=== PATIENT | male | born 1955 | race Caucasian/White ===

== ENCOUNTER 2018-02-10 07:21 | Day surgery (SDC) | payer OTHER ==
[2018-02-10] MEDS ORDERED: Ringers Lactate 1,000 ML IV ONE (07:28)
[2018-02-10] MEDS ORDERED: NA CIT/CITRIC AC 30 ML ORAL UDC ONE (07:52)
[2018-02-10] MEDS ORDERED: NA CIT/CITRIC AC 30 ML ORAL UDC PO ONE (08:05)
[2018-02-10] MEDS ORDERED: PROPOFOL 200 MG/20 ML VIAL IV ONE (08:19)
--- NOTE | 2018-02-10 08:49 | ENDO RPT ---
[address], [address] EGD PROCEDURE REPORT EXAM DATE: 02/10/2018 PATIENT NAME: Manfred Gordon V. MR#: [id number] BIRTHDATE: 1955 ATTENDING: Marcel Murray DR STATUS: outpatient DISK SHARPENER: Ruth Warner and Klaudia Vieira RN INDICATIONS: The patient is a 62 yr old Male here for an EGD due to GERD and S/P Fundoplication PROCEDURE PERFORMED: EGD with biopsy for H. pylori MEDICATIONS: Per Anesthesia. TOPICAL ANESTHETIC: none CONSENT: The patient understands the risks and benefits of the procedure and understands that these risks include, but are not limited to: sedation, allergic reaction, infection, perforation and/or bleeding. Alternative means of evaluation and treatment include, among others: physical exam, x-rays, and/or surgical intervention. The patient elects to proceed with this endoscopic procedure. DESCRIPTION OF PROCEDURE: During intra-op preparation period all mechanical medical equipment was checked for proper function. Hand hygiene and appropriate measures for infection prevention was taken. Procedure, possible complications, and alternatives including but not limited to the possibility of bleeding, perforation, tear, infection, sepsis, need for surgery, need for blood transfusion, and anesthesia related complications were explained to the patient. After the risks, benefits and alternatives of the procedure were thoroughly explained, Informed consent was verified, confirmed and timeout was successfully executed by the treatment team. The patient was placed in the left lateral position. The patient was anesthetized with topical anesthesia. Through the anesthetized oropharyngeal area, the scope was passed without any difficulty. The [id number] ([id number]) endoscope was introduced through the mouth and advanced to the second portion of the duodenum. Retroflexed views revealed a moderate sized hiatal hernia. The gastroscope was then slowly withdrawn and removed. Mild gastritis was found in the body and the antrum of the stomach. A biopsy for H. pylori was taken. Multiple biopsies were obtained and sent to pathology. Multiple erosions were found in the lower esophagus. Located 38 cm from the point of entry. Multiple biopsies were obtained and sent to pathology. A biopsy for H. pylori was taken. A moderate sized hiatal hernia was found A biopsy for H. pylori was taken. ADVERSE EVENTS: There were no complications. IMPRESSIONS: Mild gastritis was found in the body and the antrum of the stomach RECOMMENDATIONS: 1. anti-reflux regimen 2. await biopsy results 3. acid suppression therapy 4. follow-up: office 2 week(s) 5. avoid NSAIDS REPEAT EXAM: Marcel Murray DR eSigned: Marcel Murray DR 02/10/2018 8:48 AM cc: CPT CODES: ICD9 CODES: PATIENT NAME: Manfred Gordon V. MR#: [id number]
== END 2018-02-10 09:27 | disposition home or self-care (01) ==
LOC: ENDO 07:21
PROVIDERS: ATTEND Surgery
PROC: 0DB68ZX Excision of Stomach, Via Natural or Artificial Opening Endoscopic, Diagnostic (ICD-10-PCS; 2018-02-10)
PROC: 0DB38ZX Excision of Lower Esophagus, Via Natural or Artificial Opening Endoscopic, Diagnostic (ICD-10-PCS; principal; 2018-02-10 08:30)
DX: K29.50 Unspecified chronic gastritis without bleeding (principal); K22.10 Ulcer of esophagus without bleeding; K44.9 Diaphragmatic hernia without obstruction or gangrene
CPT/HCPCS: 88305; 88312

== ENCOUNTER 2019-07-21 03:52 | Emergency (ER) | payer OTHER, SELFPAY ==
[2019-07-21] MEDS ORDERED: LORazepam 2 MG/ML VIAL ONE (04:10)
[2019-07-21 05:23] LABS: Absolute Lymphocytes (CBC) 2.2 K/uL (0.7-4.9); Basophils % 0.5 % (0-1.3); Hematocrit 44.2 % (39.6-49.0); Lymphocytes % 26.8 % (15.3-44.8); MPV 9.6 fL (7.6-11.3); Protime INR 1.14; RBC Red Blood Cell Count 4.74 M/uL (4.33-5.43)
[2019-07-21 05:41] LABS: Potassium 3.2 mmol/L (3.5-5.1)
[2019-07-21] MEDS ORDERED: PIPER/TAZO/NS 2.25gm 0 GM/0 ML BAG ONE (05:45)
[2019-07-21 05:55] LABS: Barbiturates NEGATIVE (NEGATIVE); Benzodiazepines NEGATIVE (NEGATIVE); Cocaine NEGATIVE (NEGATIVE); METHAMPHETAM NEGATIVE (NEGATIVE); Methadone NEGATIVE (NEGATIVE); Opiates NEGATIVE (NEGATIVE); Phencyclidine NEGATIVE (NEGATIVE); THC Cannibis NEGATIVE (NEGATIVE)
--- NOTE | 2019-07-21 06:16 | ER ---
Nurse's Notes [facility] Name: Manfred Gordon Age: 63 yrs Sex: Male : 1955 Arrival Date: 07/21/2019 Time: 03:57 Bed 13 Private MD: Diagnosis: Hyperventilation;Abnormal weight loss;Major depressive disorder, single episode Presentation: 07/21 04:04 Presenting complaint: EMS states: Patient was at work talking on the phone with his tl1 and became very anxious and started hyperventilating. Pt denies any history. Transition of care: patient was not received from another setting of care. Onset of symptoms was July 21, 2019. Risk Assessment: Do you want to hurt yourself or someone else? Patient reports no desire to harm self or others. Initial Sepsis Screen: Does the patient meet any 2 criteria? RR > 20 per min. HR > 90 bpm. Does the patient have a suspected source of infection? No. Patient's initial sepsis screen is negative. Care prior to arrival: None. 04:04 Method Of Arrival: EMS: [facility] tl1 04:04 Acuity: LILLIE 2 tl1 Historical: - Allergies: 04:07 No Known Allergies; tl1 - Home Meds: 04:07 None [Active]; tl1 - PMHx: 04:07 None; tl1 - PSHx: 04:07 None; tl1 - Immunization history:: Adult Immunizations unknown. - Social history:: Smoking status: Patient/guardian denies using tobacco, Patient/guardian denies using alcohol, street drugs. - Ebola Screening: : Patient negative for fever greater than or equal to 101.5 degrees Fahrenheit, and additional compatible Ebola Virus Disease symptoms Patient denies exposure to infectious person Patient denies travel to an Ebola-affected area in the 21 days before illness onset. Screenin:41 Abuse screen: Denies threats or abuse. Nutritional screening: No deficits noted. jb4 Tuberculosis screening: No symptoms or risk factors identified. The patient is alert, able to follow commands. The patient does not exhibit slurred or garbled speech The patient is not exhibiting difficulty speaking. The patient does not exhibit difficulty understanding words. The patient is able to swallow own secretions with no drooling or need for suction. Patient tolerated one teaspoon of water. No drooling, immediate coughing, gurgling, or clearing of the throat was noted. The patient tolerated 90mL of water. No drooling, immediate coughing, gurgling, or clearing of the throat was noted. The patient passed the bedside swallow screening. Oral medications may be given as ordered. Contact Physician for further diet orders. Fall Risk None identified. Assessment: 04:00 General: Appears distressed, uncomfortable, Behavior is cooperative, anxious. Pain: jb4 Denies pain. Neuro: Level of Consciousness is awake, alert, obeys commands, Oriented to person, place, situation. Cardiovascular: Patient's skin is warm and dry. Respiratory: Airway is patent Respiratory effort is even, unlabored, Respiratory pattern is regular, symmetrical. GI: No deficits noted. No signs and/or symptoms were reported involving the gastrointestinal system. : No deficits noted. No signs and/or symptoms were reported regarding the genitourinary system. EENT: No deficits noted. No signs and/or symptoms were reported regarding the EENT system. Derm: Skin is intact, Skin is pink, warm \T\ dry. Musculoskeletal: Circulation, motion, and sensation intact. 04:48 Reassessment: Patient and/or family updated on plan of care and expected duration. Pain jb4 level reassessed. Patient is alert, oriented x 3, equal unlabored respirations, skin warm/dry/pink. Patient states feeling better. General: Behavior is flat. 05:49 Reassessment: Patient appears in no apparent distress at this time. Patient and/or jb4 family updated on plan of care and expected duration. Pain level reassessed. Patient is alert, oriented x 3, equal unlabored respirations, skin warm/dry/pink. 06:20 Reassessment: Patient appears in no apparent distress at this time. Patient and/or jb4 family updated on plan of care and expected duration. Pain level reassessed. Patient is alert, oriented x 3, equal unlabored respirations, skin warm/dry/pink. PT verbalized understanding of d/c and follow up instructions. Ambulated out of ED with steady gait. Patient states symptoms have improved. Vital Signs: 04:08 BP 164 / 81; Pulse 104; Resp 42; Temp 97.6; Pulse Ox 100% ; Weight 95.25 kg; Height 6 tl1 ft. 0 in. (182.88 cm); Pain 0/10; 04:45 BP 158 / 105; Pulse 103; Resp 24; Pulse Ox 100% on R/A; jb4 05:15 BP 125 / 70; Pulse 106; Pulse Ox 100% ; sh8 05:30 BP 139 / 92; Pulse 106; Resp 22; Pulse Ox 99% on R/A; sh8 06:15 BP 112 / 77; Pulse 93; Resp 16; Pulse Ox 100% on R/A; jb4 04:08 Body Mass Index 28.48 (95.25 kg, 182.88 cm) tl1 NIH Stroke Scale Scores: 19:40 NIHSS Score: 1 ED Course: 03:57 Patient arrived in ED. ds1 04:00 Eamon Ann MD is Attending Physician. gs 04:07 Triage completed. tl1 04:08 Arm band placed on right wrist. Arm band placed on left wrist. EKG completed in triage. tl1 Results shown to MD. EKG completed in triage. Results shown to MD. 04:08 Patient has correct armband on for positive identification. Placed in gown. Bed in low jb4 position. Call light in reach. Side rails up X 1. Pulse ox on. NIBP on. 04:10 Initial lab(s) drawn, by me, sent to lab. Inserted saline lock: 20 gauge in right jb4 antecubital area, using aseptic technique. Blood collected. 04:16 Mike Christian, RN is Primary Nurse. jb4 04:33 CT completed. Pt tolerated procedure poorly. Patient moved to CT via stretcher. Patient eh moved back from CT. 04:37 Head Brain Wo Cont In Process Unspecified. EDMS 05:00 Stroke CXR 1 View In Process Unspecified. EDMS 06:23 No provider procedures requiring assistance completed. jb4 06:23 IV discontinued, intact, bleeding controlled, No redness/swelling at site. Pressure jb4 dressing applied. Administered Medications: 04:17 Drug: Ativan 0.5 mg Route: IVP; Site: right antecubital; jb4 05:30 Follow up: Response: No adverse reaction; Marked relief of symptoms jb4 04:21 Drug: Ativan 0.5 mg Route: IVP; Infused Over: 2 mins; Site: right antecubital; tl1 05:29 Follow up: Response: No adverse reaction; Marked relief of symptoms jb4 05:47 CANCELLED (Duplicate Order): Zosyn 2.25 grams IVPB once over 60 mins; (mix in NS 100 mL) Outcome: 06:15 Discharge ordered by . 06:23 Discharged to home ambulatory, with family. jb4 06:23 Condition: stable 06:23 Discharge instructions given to patient, family, Instructed on discharge instructions, follow up and referral plans. Demonstrated understanding of instructions, follow-up care. 06:24 Patient left the ED. jb4 NIH Stroke Scale - NIH Stroke Score Date: 07/21/2019 Time: 19:40 Total Score = 1 1a. Level of Consciousness (LOC) - 0(Alert) 1b. Level of Consciousness (LOC) (Year \T\ Age) - 1(One) 1c. LOC Commands (Open \T\ Closes Eyes/Sewer Digger) - 0(Both) 2. Best Gaze (Lateral Gaze Paresis) - 0(Normal) 3. Visual Field Loss - 0(No visual loss) 4. Facial Palsy - 0(Normal) 5a. Left Arm: Motor (10-second hold) - 0(No drift) 5b. Right Arm: Motor (10-second hold) - 0(No drift) 6a. Left Leg: Motor (5-second hold - always test supine) - 0(No drift) 6b. Right Leg: Motor (5-second hold - always test supine) - 0(No drift) 7. Limb Ataxia (finger/nose \T\ heel/mohan - test with eyes open) - 0(Absent) 8. Sensory Loss (pinprick arms/legs/face) - 0(Normal) 9. Best Language: Aphasia (description/naming/reading) - 0(No aphasia) 10. Dysarthria (speech clarity - read or repeat words) - 0(Normal) 11. Extinction and Inattention (visual/tactile/auditory/spatial/personal) - 0(No abnormality) Initials: Signatures: Dispatcher [employer] Stu Pinto Demi ds1 Ashley Talbert, RN RN tl1 Mike Christian RN RN jb4 Eamon Ann MD MD gs Heathcock, Shelbi 8 Corrections: (The following items were deleted from the chart) 06:21 04:48 Reassessment: Patient and/or family updated on plan of care and expected jb4 duration. Pain level reassessed. Patient is alert, oriented x 3, equal unlabored respirations, skin warm/dry/pink. Patient is alert/active/playful, equal unlabored respirations, skin warm/dry/pink. Patient states feeling better. jb4 06:21 05:49 Reassessment: Patient appears in no apparent distress at this time. jb4 Patient and/or family updated on plan of care and expected duration. Pain level reassessed. Patient is alert, oriented x 3, equal unlabored respirations, skin warm/dry/pink. jb4
--- NOTE | 2019-07-21 06:16 | EDPHYS ---
Physician Documentation [facility] Name: Manfred Gordon Age: 63 yrs Sex: Male : 1955 Arrival Date: 07/21/2019 Time: 03:57 Bed 13 Private MD: ED Physician Eamon Ann HPI: 07/21 19:40 This 63 yrs old Male presents to ER via EMS with complaints of Dizziness, gs Anxiety. 19:40 Onset: The symptoms/episode began/occurred suddenly, this morning, at work was arguing gs with on phone, became nervous hyperventilating. Associated signs and symptoms: Pertinent positives: confusion, Pertinent negatives: abdominal pain, chest pain. Severity of symptoms: At their worst the symptoms were severe in the emergency department the symptoms are unchanged. The patient has experienced a previous episode. The patient has not recently seen a physician. says very depressed last several months, sleep disturbance 35 lb wt loss. Historical: - Allergies: 04:07 No Known Allergies; tl1 - Home Meds: 04:07 None [Active]; tl1 - PMHx: 04:07 None; tl1 - PSHx: 04:07 None; tl1 - Immunization history:: Adult Immunizations unknown. - Social history:: Smoking status: Patient/guardian denies using tobacco, Patient/guardian denies using alcohol, street drugs. - Ebola Screening: : Patient negative for fever greater than or equal to 101.5 degrees Fahrenheit, and additional compatible Ebola Virus Disease symptoms Patient denies exposure to infectious person Patient denies travel to an Ebola-affected area in the 21 days before illness onset. ROS: 19:40 All other systems are negative. gs Exam: 19:40 Head/Face: Normocephalic, atraumatic. Eyes: Pupils equal round and reactive to light, gs extra-ocular motions intact. Lids and lashes normal. Conjunctiva and sclera are non-icteric and not injected. Cornea within normal limits. Periorbital areas with no swelling, redness, or edema. ENT: Nares patent. No nasal discharge, no septal abnormalities noted. Tympanic membranes are normal and external auditory canals are clear. Oropharynx with no redness, swelling, or masses, exudates, or evidence of obstruction, uvula midline. Mucous membranes moist. Neck: Trachea midline, no thyromegaly or masses palpated, and no cervical lymphadenopathy. Supple, full range of motion without nuchal rigidity, or vertebral point tenderness. No Meningismus. Chest/axilla: Normal chest wall appearance and motion. Nontender with no deformity. No lesions are appreciated. 19:40 Abdomen/GI: Soft, non-tender, with normal bowel sounds. No distension or tympany. No guarding or rebound. No evidence of tenderness throughout. Back: No spinal tenderness. No costovertebral tenderness. Full range of motion. Skin: Warm, dry with normal turgor. Normal color with no rashes, no lesions, and no evidence of cellulitis. MS/ Extremity: Pulses equal, no cyanosis. Neurovascular intact. Full, normal range of motion. Neuro: Awake and alert, GCS 15, oriented to person, place, time, and situation. Cranial nerves II-XII grossly intact. Motor strength 5/5 in all extremities. Sensory grossly intact. Cerebellar exam normal. Normal gait. 19:40 Constitutional: The patient appears alert, awake, anxious. 19:40 Cardiovascular: Rate: tachycardic, Rhythm: regular, Pulses: no pulse deficits are appreciated. 19:40 ECG was reviewed by the Attending Physician. 19:40 Respiratory: mild respiratory distress is noted, Respirations: tachypnea, that is moderate, Breath sounds: are clear throughout. 19:40 Psych: Behavior/mood is anxious, Affect is flat, Oriented to person, place, Not oriented to time, Patient has no thoughts/intents to harm self or others. Delusions/hallucinations are not present. Vital Signs: 04:08 BP 164 / 81; Pulse 104; Resp 42; Temp 97.6; Pulse Ox 100% ; Weight 95.25 kg; Height 6 tl1 ft. 0 in. (182.88 cm); Pain 0/10; 04:45 BP 158 / 105; Pulse 103; Resp 24; Pulse Ox 100% on R/A; jb4 05:15 BP 125 / 70; Pulse 106; Pulse Ox 100% ; sh8 05:30 BP 139 / 92; Pulse 106; Resp 22; Pulse Ox 99% on R/A; sh8 06:15 BP 112 / 77; Pulse 93; Resp 16; Pulse Ox 100% on R/A; jb4 04:08 Body Mass Index 28.48 (95.25 kg, 182.88 cm) tl1 NIH Stroke Scale Scores: 19:40 NIHSS Score: 1 gs MDM: 04:00 Patient medically screened. 19:40 Differential diagnosis: CVA, TIA, hyperventilation, generalized anxiety. Data reviewed: vital signs, nurses notes, lab test result(s), EKG, radiologic studies. Counseling: I had a detailed discussion with the patient and/or guardian regarding: the historical points, exam findings, and any diagnostic results supporting the discharge/admit diagnosis. Response to treatment: the patient's symptoms have resolved after treatment, the patient's condition has returned to base line, wants to go home exam normal recommended stress and depression counseling seeing PCP also. 07/21 04:02 Order name: UDS; Complete Time: 06:14 07/21 04:02 Order name: Basic Metabolic Panel; Complete Time: 05:48 07/21 04:02 Order name: CBC with Diff; Complete Time: 05:37 07/21 04:02 Order name: Protime (+inr); Complete Time: 05:37 07/21 04:02 Order name: ETOH Level; Complete Time: 06:14 07/21 04:29 Order name: ABG 07/21 04:02 Order name: Stroke CXR 1 View 07/21 04:02 Order name: EKG; Complete Time: 04:02 07/21 04:25 Order name: Head Brain Wo Cont EDSD 07/21 04:48 Order name: Glucose, Ancillary Testing; Complete Time: 05:10 [facility] 07/21 04:02 Order name: Accucheck; Complete Time: 04:41 07/21 04:02 Order name: Cardiac monitoring; Complete Time: 04:17 07/21 04:02 Order name: EKG - Nurse/Tech; Complete Time: 04:17 07/21 04:02 Order name: IV Saline Lock; Complete Time: 04:17 07/21 04:02 Order name: Labs collected and sent; Complete Time: 04:17 07/21 04:02 Order name: NPO; Complete Time: 04:17 07/21 04:02 Order name: O2 Per Protocol; Complete Time: 04:17 07/21 04:02 Order name: O2 Sat Monitoring; Complete Time: 04:17 07/21 04:02 Order name: Stroke Swallow Screen; Complete Time: 04:41 gs EC:40 Rate is 98 beats/min. Rhythm is regular. TX interval is normal. QRS interval is normal. gs QT interval is prolonged. T waves are Flattened. Clinical impression: NSR w/ Non-specific ST/T Changes and Abnormal EKG without significant change. Interpreted by me. Administered Medications: 04:17 Drug: Ativan 0.5 mg Route: IVP; Site: right antecubital; jb4 05:30 Follow up: Response: No adverse reaction; Marked relief of symptoms jb4 04:21 Drug: Ativan 0.5 mg Route: IVP; Infused Over: 2 mins; Site: right antecubital; tl1 05:29 Follow up: Response: No adverse reaction; Marked relief of symptoms jb4 05:47 CANCELLED (Duplicate Order): Zosyn 2.25 grams IVPB once over 60 mins; (mix in NS 100 mL)gs Disposition: 07/21/19 06:15 Discharged to Home. Impression: Hyperventilation, Abnormal weight loss, Major depressive disorder, single episode. - Condition is Stable. - Discharge Instructions: Hyperventilation, Managing Your Hypertension, Major Depressive Disorder. - Medication Reconciliation Form, Thank You Letter, Antibiotic Education, Prescription Opioid Use form. - Follow up: Private Physician; When: 2 - 3 days; Reason: Re-evaluation by your physician. NIH Stroke Scale - NIH Stroke Score Date: 07/21/2019 Time: 19:40 Total Score = 1 1a. Level of Consciousness (LOC) - 0(Alert) 1b. Level of Consciousness (LOC) (Year \T\ Age) - 1(One) 1c. LOC Commands (Open \T\ Closes Eyes/Hotel Office Manager) - 0(Both) 2. Best Gaze (Lateral Gaze Paresis) - 0(Normal) 3. Visual Field Loss - 0(No visual loss) 4. Facial Palsy - 0(Normal) 5a. Left Arm: Motor (10-second hold) - 0(No drift) 5b. Right Arm: Motor (10-second hold) - 0(No drift) 6a. Left Leg: Motor (5-second hold - always test supine) - 0(No drift) 6b. Right Leg: Motor (5-second hold - always test supine) - 0(No drift) 7. Limb Ataxia (finger/nose \T\ heel/mohan - test with eyes open) - 0(Absent) 8. Sensory Loss (pinprick arms/legs/face) - 0(Normal) 9. Best Language: Aphasia (description/naming/reading) - 0(No aphasia) 10. Dysarthria (speech clarity - read or repeat words) - 0(Normal) 11. Extinction and Inattention (visual/tactile/auditory/spatial/personal) - 0(No abnormality) Initials: Signatures: Dispatcher [employer] EDSD Ashley Talbert, RN RN tl1 Mike Christian RN RN jb4 Eamon Ann MD MD gs Corrections: (The following items were deleted from the chart) 04:25 04:02 CT-STROKE BRAIN W/O CONTRAST+CT.RAD.BRZ ordered. EDSD EDMS 05:47 05:40 Zosyn 2.25 grams IVPB once over 60 mins; (mix in NS 100 mL) ordered. [facility] 06:24 06:15 07/21/2019 06:15 Discharged to Home. Impression: Hyperventilation; jb4 Abnormal weight loss; Major depressive disorder, single episode. Condition is Stable. Forms are Medication Reconciliation Form, Thank You Letter, Antibiotic Education, Prescription Opioid Use. Follow up: Private Physician; When: 2 - 3 days; Reason: Re-evaluation by your physician.
[2019-07-21 06:30] VITALS: TEMP 97.6; O2SAT 100
[2019-07-21 07:12] VITALS: BP 112/77
--- NOTE | 2019-07-21 08:28 | EKG ---
Test Date: 2019-07-21 Test Time: 04:00:02 Laceworker: SWATI MEASUREMENT RESULTS: Intervals: Rate: 98 CO: 126 QRSD: 96 QT: 390 QTc: 497 [place]: P: 76 CO: 126 QRS: 85 T: 63 INTERPRETIVE STATEMENTS: Normal sinus rhythm Nonspecific ST abnormality Prolonged QT Abnormal ECG No previous ECG available for comparison Electronically Signed On 07-21-19 08:27:24 CDT by Doyle Cope
--- NOTE | 2019-07-21 10:26 | RAD REPORT ---
EXAM DESCRIPTION: RAD - Chest Single View - 07/21/2019 4:59 am CLINICAL HISTORY: Dyspnea COMPARISON: None. TECHNIQUE: AP portable chest image was obtained 0429 hours . FINDINGS: No focal mass or consolidation. No failure or volume overload. Interstitial markings are m ildly prominent. Right hilum is unremarkable. Slight fullness of the left hilum is present with no adequate comparison available. This is almost certainly normal summation due to portable imaging and slight rotation. Fo llow-up two view imaging may be helpful. Heart and vasculature are normal. No measurable pleural effusion and no pneumothorax. No acute bony abnormality seen. No acute aortic findings suspected. IMPRESSION: 1. No acute cardiopulmonary finding identified. 2. The patient has fullness of the left hilum on this baseline examination almost certainly a summati on of normal vasculature. If the patient has risk factors, follow-up two-view chest imaging is recomm ended the patient has no outside imaging known.
--- NOTE | 2019-07-21 11:27 | RAD REPORT ---
EXAM DESCRIPTION: CT - Head Brain Wo Cont - 07/21/2019 6:25 am CLINICAL HISTORY: The patient is 63 years old and is Male; CONFUSED TECHNIQUE: Axial computed tomography images of the head/brain without intravenous contrast. Sagitt al and coronal reformatted images were created and reviewed. This CT exam was performed using one o r more of the following dose reduction techniques: automated exposure control, adjustment of the mA and/or kV according to patient size, and/or use of iterative reconstruction technique. COMPARISON: No relevant prior studies available. FINDINGS: BRAIN: Unremarkable. The daven[place]-white matter differentiation is preserved . No hemorrhag e. No significant white matter disease. No edema. No extra-axial fluid collections. VENTRICLES: Unremarkable. No ventriculomegaly. BONES/JOINTS: No acute fracture. SOFT TISSUES: Unremarkable. SINUSES: Unremarkable as visualized. No acute sinusitis. MASTOID AIR CELLS: Unremarkable as visualized. No mastoid effusion. ORBITS: Unremarkable as visualized. IMPRESSION: No acute intracranial findings. Electronically signed by: Liana Fowler MD 07/21/2019 6:08 AM CDT Due to temporary technical issues with the PACS/Fluency reporting system, reports are being signed by the in house radiologist as a courtesy to ensure prompt reporting. The interpreting radiologist is f ully responsible for the content of the report.
== END 2019-07-21 06:24 | disposition home or self-care (01) ==
LOC: ER 03:52
DX: R06.4 Hyperventilation (principal); R63.4 Abnormal weight loss; F32.9 Major depressive disorder, single episode, unspecified
CPT/HCPCS: 36415; 70450; 71045; 80048; 80307; 80320; 82947; 85025; 85610; 93005; 96374; 99284; J2543

== ENCOUNTER 2022-06-05 06:30 | Day surgery (SDC) | payer OTHER ==
--- NOTE | 2022-05-30 09:20 | RAD REPORT ---
EXAM DESCRIPTION: Annabelle Ruiz (2 Views)05/30/2022 9:09 am CLINICAL HISTORY: Preop for foot surgery COMPARISON: 2019 FINDINGS: Lungs are mildly hyperaerated. The lungs appear clear of acute infiltrate. The heart is normal size Gastric band in place IMPRESSION: No acute abnormalities displayed
[2022-05-30 09:31] LABS: SARS-CoV-2 Antigen Rapid Res Negative (Negative)
[2022-05-30 09:36] LABS: Potassium 4.4 mmol/L (3.5-5.1)
[2022-05-30 09:49] LABS: Absolute Lymphocytes (CBC) 2.3 K/uL (0.7-4.9); Hematocrit 42.6 % (39.6-49.0); Lymphocytes % 56.7 % (15.3-44.8); MCV 93.6 fL (80-100); MPV 8.1 fL (7.6-11.3); RBC Red Blood Cell Count 4.55 M/uL (4.33-5.43)
--- NOTE | 2022-05-30 13:57 | EKG ---
Test Date: 2022-05-30 Test Time: 08:37:36 Hand Bootmaker: MICHELE MEASUREMENT RESULTS: Intervals: Rate: 79 OR: 154 QRSD: 86 QT: 382 QTc: 438 [place]: P: 73 OR: 154 QRS: 65 T: 50 INTERPRETIVE STATEMENTS: Normal sinus rhythm Low voltage QRS Borderline ECG Compared to ECG 07/21/2019 04:00:02 Low QRS voltage now present ST (T wave) deviation no longer present Prolonged QT interval no longer present Electronically Signed On 05-30-22 13:57:26 CDT by Neal Ludwig
--- NOTE | 2022-06-04 19:22 | PREOPHP ---
Date of Admission: 06/05/2022 History Of Present Illness: This patient presented to my office with a chief complaint of a painful 4th and 5th toe present on the right foot. Patient has had pain for years, relieved by rest, worse w ith activity, sore and throbbing in nature, moderate in severity. The patient has tried conservative care, paddings, changing shoe gear, all to no avail. Past Medical History: Includes depression. Surgical History: Includes wrist surgery, bilateral thorax outlet surgery and back fusions at L4-L5 and C6-C7. Current Medications: Include quetiapine 25 mg, duloxetine 60 mg, hydrocodone 5 mg, and acetaminophen 325. Allergies: NO DRUG ALLERGIES NOTED. Social History: The patient is a former cigarette user. Beer socially. Family History: Includes diabetes in his mother and brother. Physical Examination: Vital Signs: 185 pounds, height 6 feet. General Appearance: The patient is healthy, well developed, well nourished, well oriented x3. Vascular: Evaluation reveals dorsalis pedis and posterior tibial pulses to be 4/4 bilaterally. Capi llary refill time is less than 3 seconds to all toes. Temperature gradient is within normal limits. No claudication complaint is noted bilaterally. Musculoskeletal: Examination reveals a semirigid cavus foot type bilaterally. Subtalar joint shows normal position bilaterally. There was forefoot supinatus with adductus bilaterally. Equinus is not ed to be -5 on the right and 0 on the left per goniometer measurement. Knee and ankle assessment are within normal limits. There is no tenderness on the plantar fascia noted bilaterally. No soft tiss ue masses are noted bilaterally. Digits on the right foot reveal contracture at the PIPJ of digits 2 -5, flexible in nature with the fifth toe in adductovarus laying underneath the 4th toe at the PIPJ w ith a mild adductovarus contracture of the 4th under the 3rd toe. Left digits are within normal limi ts. Muscle testing for lower extremity muscles within normal limits. Skin: Evaluation reveals no rash, ulcer, tumor, or contracture. There is callus at the DIPJ on the 5 th toe medially and the PIPJ on the 4th toe laterally. No redness, swelling, temp, or drainage is no franck. Neurologic: Evaluation reveals deep tendon reflexes of the patella and Achilles to be 5/5 bilaterall y. Vibratory and sharp dull sensation within normal limits. Imaging: X-ray evaluation reveals an adductovarus deformity of the fourth and fifth toes with a cont racture of the 3rd toe at the DIPJ. Bones are well mineralized. No fracture or tumors noted bilater ally. Diagnosis: Hammertoe deformity, 5th digit and 4th digit, right foot. Plan: The recommended treatment is for an arthroplasty of the 5th toe at the PIPJ, right foot, and a fusion of the 4th toe at the PIPJ, right foot. A flexor tenotomy will also be performed plantarly a t the DIPJ of the 4th toe. The risks, benefits, and alternatives of the above-mentioned procedure in cluding, but not limited to the risk of pain, swelling, numbness, stiffness, infection, nonhealing of skin and bone or soft tissues have been explained to the patient as well as the risk of nonfusion du e to bone quality or patient noncompliance. The patient has also been made aware of the risks of COV ID-19 currently to follow CDC guidelines to prevent the risk of infection during postop period, which can cause complications including blood clots and decreased ability to heal. The patient requests s urgical management due to lack of response to conservative treatment. The patient has been given wri tten postop instructions. Medical H and P will be completed by Anesthesia and the patient is schedul ed for surgery at [facility] on June 05, 2022. LACY/MIRTHA Voice ID: [id number]
[2022-06-05] MEDS ORDERED: CEFAZOLIN SODIUM 1 GM/VIAL ONE (06:48)
[2022-06-05] MEDS ORDERED: Ringers Lactate 1,000 ML IV ONE (06:48)
[2022-06-05] MEDS ORDERED: FENTANYL CITR 100 MCG/2 ML ONE (07:18)
[2022-06-05] MEDS ORDERED: propofoL 200 MG/20 ML VIAL IV ONE ×2 (07:18→08:07)
[2022-06-05] MEDS ORDERED: MIDAZOLAM HCL 2 MG/2 ML INJ ONE (07:19)
[2022-06-05] MEDS ORDERED: ONDANSETRON 4 MG/2 ML VIAL ONE (07:20)
[2022-06-05] MEDS ORDERED: LIDOCAINE 1% MPF 30 ML VIAL ONE (07:22)
[2022-06-05] MEDS ORDERED: dexAMETHasone 4 MG/ML VIAL ONE (07:22)
[2022-06-05] MEDS ORDERED: LIDOCAINE 2% MPF 5 ML VIAL ONE (07:22)
[2022-06-05] MEDS ORDERED: BUPIVACAINE 0.5% PF 10 ML VIAL SQ ONE (07:53)
[2022-06-05] MEDS ORDERED: LIDOCAINE 1% MPF 30 ML VIAL IJ ONE (07:54)
[2022-06-05 11:13] VITALS: BP 134/73; TEMP 96.2; O2SAT 100
--- NOTE | 2022-06-05 19:25 | OP ---
Date of Procedure: 06/05/2022 Surgeon: Jasvir Leroy DPM Preoperative Diagnosis: Hammertoe deformity of 4th digit and 5th digit, right foot. Postoperative Diagnosis: Hammertoe deformity of 4th digit and 5th digit, right foot. Procedures: 1.Fusion 4th toe PIPJ with DJO 10 mm 2 step implant. 2.Flexor tenotomy plantar DIPJ of 4th toe, right foot. 3.Arthroplasty of 5th digit, right foot. Anesthesia: Via local infiltration. Procedure In Detail: The patient was brought into the operating room, placed on the operating room t able in supine position. Once adequate IV sedation was obtained, the patient was injected with a tot al of 6 cc of 0.5% Marcaine plain. The patient was prepped and draped in usual sterile manner. The right extremity was elevated to 60 degrees and an Esmarch bandage was applied to exsanguinate the blo od supply. Pneumatic ankle tourniquet was elevated to 250 mmHg and the Esmarch was removed. Procedure: Attention was then directed to the 4th toe where 2 semi-elliptical converging incisions w ere made 1.5 cm in length overlying the PIPJ of the 4th toe. Wedge of skin was removed. Neurologic structures were avoided. All bleeders were clamped and bovied. The extensor tendon was isolated and transected transversely at the level of the PIPJ and dissected free from its bony medial and lateral attachments and reflected proximally utilizing a 15 blade. The head of the proximal phalanx was the n resected utilizing a sagittal saw just behind the articular cartilage perpendicular to the shaft. The middle phalanx base was then isolated and utilizing the sagittal saw, a sliver of articular carti marialuisa was removed and all rough edges were smoothed. The DJO 2 step implant system was then utilized. K-wire was driven into the proximal phalanx. A cannulated drill was then placed and drilled into t he shaft. The base of the middle phalanx was then trephined and a screw was then placed 10 mm in martin gth into the proximal phalanx, stopping at the trocar flare. The device was then implanted and pushe d into the middle phalanx with excellent bone contact and stability. The bone edges were together. Redundant tendon was removed. The area was flushed with copious amounts of sterile saline. The tend on was reapproximated utilizing 2-0 Vicryl suture. The skin was reapproximated utilizing 4-0 Prolene suturing. Procedure #2: A [place] blade was then utilized to make a vertical stab incision at the level of the DIPJ plantarly. The blade was then turned and the flexor tendon was then cut, which relaxed the DIPJ . The blade was then removed. No suture was placed. Procedure #3: The 5th toe was then approached. Two semi-elliptical converging incisions, 1 cm in le ngth were made from proximal lateral to distal medial. A wedge of skin was removed. All neurologic structures were avoided. All bleeders were clamped and bovied. The extensor digitorum longus tendon was then transversely incised at the level of the PIPJ and medial and lateral collateral ligaments w ere freed. The tendon was reflected proximally. Utilizing a double-action bone cutter, the head of the proximal phalanx was removed. All rough edges were smoothed utilizing a rongeur and a rasp. The area was flushed with copious amounts of sterile saline. Tendon was reapproximated utilizing 3-0 Vi cryl suture with the toe held in a corrected derotated position. The skin was then closed with the t oe held in derotated position utilizing 4-0 Prolene. All the layers were dressed with Adaptic, dry s terile gauze, Dakota, Kerlix, and Anthony bandage. Coban was wrapped around the 4th and 5th toes. Capill kerri return was seen to be instantaneous to all digits once the tourniquet was released. The patient will be followed in my office for postoperative care. Patient was sent to same-day surgery in satisf actory condition. LACY/MIRTHA Voice ID: [id number] Report ID: [id number]
--- NOTE | 2022-06-05 19:27 | DS ---
Date of Discharge: 06/05/2022 Date Of Surgery: 06/05/2022. Surgeon: Jasvir Leroy DPM. Preoperative Diagnosis: Hammertoe deformity of 4th and 5th digits, right foot. Postoperative Diagnosis: Hammertoe deformity of 4th and 5th digits, right foot. Procedures: 1.Fusion 4th toe PIPJ with DJO 2 step implant, 10 mm. 2.Flexor tenotomy at the level of the DIPJ on the 4th toe, right foot. 3.Arthroplasty of 5th digit, right foot. Hospital Course: The patient tolerated the procedure and anesthesia well and was sent to same-day [facility] in satisfactory condition. The patient has been given written postop instructions as well as e mergency phone number and postop medications for pain. Patient will ambulate in a postop shoe and wi ll be followed in the office in 1 week for postoperative care. ÁNGEL Voice ID: [id number] Report ID: [id number]
== END 2022-06-05 09:45 | disposition home or self-care (01) ==
LOC: PRE 06:30
PROVIDERS: ATTEND Podiatrist
PROC: 0L8V0ZZ Division of Right Foot Tendon, Open Approach (ICD-10-PCS; 2022-06-05)
PROC: 0SRP0JZ Replacement of Right Toe Phalangeal Joint with Synthetic Substitute, Open Approach (ICD-10-PCS; 2022-06-05)
PROC: 0SGP04Z Fusion of Right Toe Phalangeal Joint with Internal Fixation Device, Open Approach (ICD-10-PCS; principal; 2022-06-05 07:30)
DX: M20.41 Other hammer toe(s) (acquired), right foot (principal); M79.674 Pain in right toe(s); Z20.822 Contact with and (suspected) exposure to COVID-19
CPT/HCPCS: 93005; 85025; 80048; 36415; 71046; 87811; 28285 ×2; J2704 ×2; J2001; J2250; J3010; J7120; J2405; J0690; J1100

== ENCOUNTER 2023-08-04 06:24 | Day surgery (SDC) | payer OTHER ==
[2023-08-04] MEDS ORDERED: Ringers Lactate 1,000 ML IV ONE (06:56)
[2023-08-04] MEDS ORDERED: FENTANYL CITR 100 MCG/2 ML ONE (07:35)
[2023-08-04] MEDS ORDERED: propofoL 200 MG/20 ML VIAL IV ONE (07:35)
[2023-08-04] MEDS ORDERED: MIDAZOLAM HCL 2 MG/2 ML INJ ONE (07:36)
[2023-08-04] MEDS ORDERED: LIDOCAINE 1% MPF 5 ML VIAL ONE (07:37)
[2023-08-04] MEDS ORDERED: ONDANSETRON 4 MG/2 ML VIAL ONE (07:38)
[2023-08-04] MEDS ORDERED: CEFAZOLIN SODIUM 2 GM/VIAL ONE (07:45)
[2023-08-04] MEDS ORDERED: dexAMETHasone 10 MG/ML VIAL ONE (08:00)
--- NOTE | 2023-08-04 08:59 | OP ---
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 2.BPH with lower urinary tract obstruction and symptoms. 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 2.BPH with lower urinary tract obstruction and symptoms. Principal Procedures: 1.Transrectal ultrasound-guided fiducial markers placement-2 markers placed. 2.Transrectal ultrasound-guided SpaceOAR gel insertion. Indication For Procedure: Mr. Gordon presented to the Urology Clinic with an elevated PSA of 7.5 an d underwent a biopsy of the prostate revealing favorable intermediate risk prostate cancer with a PSA density of 0.47 and disease identified in multiple cores, predominantly on the right side of his pro state. He underwent Oncotype DX scoring, which revealed a 10% risk of distant metastasis within 10 y ears, and he elected to proceed with radiation therapy. Because he had some obstructive urinary symp toms as evidenced by the persistent need for Flomax and an AUA symptom score of 9/35, he was counsele d on the potential benefit to UroLift in addition to the SpaceOAR gel. Unfortunately, his preoperati ve urine culture, which originally was reportedly negative, was subsequently modified 5 days later to suggest between 10 and 100,000 colonies of an unspeciated organism. As a result, because of that, w e were unable to proceed with the UroLift. Procedure In Detail: The patient was consented in the preoperative holding area before being transfe rred to the operative suite where general anesthesia was induced. He was given Ancef 2 g IV antimicr obial prophylaxis, and pneumo boots were provided for DVT prophylaxis. He was placed in the lithotom y position, padded and secured to the table appropriately. The transrectal ultrasound probe was plac ed via his anus into his rectum with ease, and a stepper device was used to hold the ultrasound probe in appropriate position. The prostate was then visualized from the perineal region all the way to t he seminal vesicles and the bladder neck. I then initially utilized ultrasound guidance to place the fiducial markers. The first marker was placed in the left anterior mid gland laterally. Once successfully placed, I th en placed a marker in the right mid gland medially. Once both markers had been successfully placed, I then utilized the SpaceOAR needle along with saline attached and I navigated the needle through the perineal region and into the prerectal fat plane beneath Denonvilliers' fascia and above the entry i nto the rectal wall. I navigated the needle all the way into the mid base region and ensured that th e needle was appropriately positioned in the midline axillae. I then aspirated and received no blood and then hydrodissected slightly. The hydrodissection did seem to occupy the midline, but mostly ex tend off to the right side of his prostate; so I repositioned the needle more to the left and again a spirated and hydrodissected to create a little bit more space on the left side. After that, I then r epositioned the needle back in the midline and again aspirated and received no blood before injecting the SpaceOAR gel and creating a nice buffer in the midline, though the buffer did mostly extend over to the right side of his prostate. Since the majority of his disease was indeed on the right side o f his prostate, perhaps this will be reasonably effective. I then removed the needle under direct vi sualization, and we cleansed his perineal region of the Betadine used to prep it in the beginning. I then took the patient out of the lithotomy position. He was awakened from general anesthesia, trans ferred to a stretcher, and then transferred to the recovery room in good condition. Complications: None. Discharge Disposition: He should plan to follow up in the Urology Clinic in about 6 months after he has completed the radiation therapy, but if his urinary symptoms are particularly bothersome and unma nageable during the period of radiation with Dr. Kaufman, he may follow up with me sooner. As we we re unable to place the UroLift today because of the concern for possible infection, we may reconsider it in the next couple of weeks pending his radiation simulation starting, but perhaps this may have to wait until after his radiation treatment is complete. VINICIUS/MIRTHA Voice ID: [id number] Report ID: [id number]
[2023-08-04 13:28] VITALS: BP 98/60; TEMP 97; O2SAT 97
== END 2023-08-04 09:34 | disposition home or self-care (01) ==
LOC: OR 06:24
PROVIDERS: ATTEND Urology
PROC: 0VH43YZ Insertion of Other Device into Prostate and Seminal Vesicles, Percutaneous Approach (ICD-10-PCS; principal; 2023-08-04 07:30)
DX: C61 Malignant neoplasm of prostate (principal); N40.1 Benign prostatic hyperplasia with lower urinary tract symptoms
CPT/HCPCS: 87088; 87086; 87077; 87186; 55874; J2704; J2001; J2250; J3010; J1100; J2405; J7120

== ENCOUNTER 2023-08-18 06:25 | Day surgery (SDC) | payer OTHER ==
[2023-08-18] MEDS ORDERED: Ringers Lactate 1,000 ML IV ONE (06:56)
[2023-08-18] MEDS: CEFAZOLIN SODIUM 2 GM/VIAL ONE ×2 (07:30→07:46)
[2023-08-18] MEDS ORDERED: CODEINE 30MG/APAP 300MG TAB PO PRN (07:37)
[2023-08-18] MEDS ORDERED: propofoL 200 MG/20 ML VIAL IV ONE (07:38)
[2023-08-18] MEDS ORDERED: MIDAZOLAM HCL 2 MG/2 ML INJ ONE (07:39)
[2023-08-18] MEDS ORDERED: FENTANYL CITR 100 MCG/2 ML ONE (07:39)
[2023-08-18] MEDS ORDERED: LIDOCAINE 1% MPF 5 ML VIAL ONE (07:40)
[2023-08-18] MEDS ORDERED: ONDANSETRON 4 MG/2 ML VIAL ONE (07:41)
[2023-08-18] MEDS ORDERED: dexAMETHasone 10 MG/ML VIAL ONE (08:00)
[2023-08-18] MEDS ORDERED: KETOROLAC 30 MG/ML INJ ONE (08:00)
[2023-08-18 08:27] VITALS: O2SAT 100
[2023-08-18 08:49] VITALS: BP 97/54; TEMP 98.1
--- NOTE | 2023-08-18 10:31 | OP ---
Surgeon: HUBERT DEMPSEY Preoperative Diagnoses: 1.Benign prostatic hypertrophy with lower urinary tract obstruction and symptoms. 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 Postoperative Diagnoses: 1.Benign prostatic hypertrophy with lower urinary tract obstruction and symptoms. 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 Principal Procedure: Prostatic urethral lift with 5 implants used, 1 pull-through, and 4 implants dukes ccessfully placed. Indication For Procedure: Mr. Gordon is a 67-year-old gentleman, who underwent GreenLight PVP in with elevated PSA and a right mid base prostate nodularity that subsequently underwent a biopsy re vealing grade group 2 adenocarcinoma of the prostate. He was counseled on options for management and ultimately elected to proceed with radiation therapy. He underwent SpaceOAR insertion as well as fi ducial markers earlier this month, and UroLift was canceled due to suspicion for UTI, which was subse quently verified. He has since been treated with antimicrobial therapy and the urine culture has ret urned negative. He now presents today for definitive management of his lower urinary obstruction. Procedure In Detail: The patient was consented in the preoperative holding area before being transfe rred to the operative suite, where general anesthesia was induced. He was given Ancef 2 g IV antimic robial prophylaxis, and pneumo boots were provided for DVT prophylaxis. He was placed in the lithoto my position, padded and secured to the table appropriately. His genitalia were prepped with Hibiclen s and he was draped in standard fashion. The case was begun using the 20-Peruvian UroLift sheath and t he visual obturator to traverse the urethra and into the bladder with relative ease. The bladder was briefly surveyed, and no papillary mucosal lesions, foreign bodies, or stones were noted. As previo usly observed, there was significant anterolateral overhang within a very short prostatic urethral le ngth, so I after decompressing his bladder of fluid and urine, switched the visual obturator for a Ur oLift implant and delivery device, and I targeted the patient's left anterolateral overhang about 1.5 cm distal to the bladder neck. Elevating the tissue in that location and targeting the 1 o'clock po sition, angling the scope about 10-15 degrees laterally, I pulled the trigger the first time deliveri ng the needle through the substance of the prostate. I then angled the scope laterally and upward an additional 15 degrees in order to elevate the tissue before pulling the trigger a second time deploy ing the capsular tab and partially retracting the needle. A third pull of the needle did further ten pam the suture and completely retract the needle before I advanced the scope back towards the midlin e and towards the bladder neck opening about 1.5 cm. Since centering the monofilament in the deliver y bay would have resulted in the implant being a little too close to the bladder neck opening, I ende d up cutting the implant where the monofilament was just entering the delivery bay. This resulted in the implant nicely being placed with a nice lip/rim of prostate tissue prior to entry into the bladd er in ideal location. It also elevated the prostate tissue in that location as desired. So I advanc ed the UroLift delivery device and scope back into his bladder and switched for a new UroLift deliver y device and implant before going a little bit further distal and targeting a similar right-sided imp lant this time at around the 11 o'clock position. This implant did beautifully elevate the tissue in that location and significantly open up the bladder neck. What it also revealed was the presence of a potential slight degree of nonobstructive bladder neck contracture. As a result, I then switched the UroLift delivery device for a visual obturator and surveyed the channel created, and there was re sidual apical lateral lobar intrusion. So I placed a third implant in the region of the verumontanum on the left and nicely lateralized the tissue there before surveying the channel again with the visu al obturator. The channel was somewhat circuitous at this point with some residual tissue intruding from the patient's right side at the apex; so I elected to place a fourth implant on the right apical tissue at the level of the verumontanum. After delivering the needle through the substance of the p rostate, the first pull of the trigger did seem to cause abnormal tissue movement, which was subseque ntly revealed to be a pull through, in that no monofilament was ever seen and the actual implant was eventually seen residual within the UroLift delivery device. As a result, this was removed under dir ect vision, and that fourth implant was a pull through. So I had to switch for a new UroLift implant , the fifth, which I placed at the patient's right apex at the level of the verumontanum successfully , and afterwards, I surveyed the channel created using a visual obturator and there was a beautiful c ontinuous anterior channel. As a result, I refilled his bladder with sterile saline before removing the scope and replacing a 20-Peruvian coude-tipped catheter into his bladder with ease. There was mini mal hematuria at this point, and 15 cc of sterile water was placed in the balloon. He was then taken out of the lithotomy position, awakened from general anesthesia, transferred to a stretcher, and the n transferred to the recovery room in good condition. Complications: None. Discharge Disposition: He may plan to begin his radiation therapy likely in around 3-4 weeks after t he initial inflammation from the UroLift has had a chance to settle out. He should plan to follow up with me per routine in the Urology Clinic in about a month's time. VINICIUS/MIRTHA Voice ID: [id number] Report ID: [id number]
== END 2023-08-18 09:55 | disposition home or self-care (01) ==
LOC: OR 06:25
PROVIDERS: ATTEND Urology
PROC: 0T7D8DZ Dilation of Urethra with Intraluminal Device, Via Natural or Artificial Opening Endoscopic (ICD-10-PCS; principal; 2023-08-18 07:30)
DX: C61 Malignant neoplasm of prostate (principal); N40.1 Benign prostatic hyperplasia with lower urinary tract symptoms
CPT/HCPCS: 87086; 52441; 52442 ×3; J2704; J2001; J2250; J3010; J1100; J2405; J7120; 87088